=== PATIENT | male | born 1995 | race Caucasian/White ===

== ENCOUNTER 2017-04-28 23:31 | Emergency (ER) | payer MEDICARE, OTHER, MEDICAID ==
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
[2017-04-29 00:16] LABS: ABSOLUTE EOSINOPHILS # (AUTO) 0.1 10^3/uL (0.0-0.6); ABSOLUTE LYMPHOCYTES (AUTO) 2.9 10^3/uL (0.5-4.7); ABSOLUTE MONOCYTES (AUTO) 0.4 10^3/uL (0.1-1.4); BASOPHILS % (AUTO) 0.3 % (0-2); EOSINOPHILS % (AUTO) 1.7 % (0-6); HEMATOCRIT 45.9 % (37.9-51.0); HEMOGLOBIN 15.8 g/dL (13.5-17.0); HGB HCT DIFFERENCE 1.5; LYMPHOCYTES % (AUTO) 34.4 % (13-45); MEAN CORPUSCULAR HEMOGLOBIN 29.7 pg (27.0-33.4); MEAN CORPUSCULAR HGB CONC 34.5 g/dL (32.0-36.0); MEAN CORPUSCULAR VOLUME 86 fl (80-97); MONOCYTES % (AUTO) 4.4 % (3-13); RED BLOOD COUNT 5.32 10^6/uL (4.35-5.55); RED CELL DISTRIBUTION WIDTH 12.9 % (11.5-14.0); SEGMENTED NEUTROPHILS % (AUTO) 59.2 % (42-78); WHITE BLOOD COUNT 8.4 10^3/uL (4.0-10.5)
[2017-04-29 00:48] LABS: ALANINE AMINOTRANSFERASE 61 U/L (21-72); ALBUMIN 4.8 g/dL (3.5-5.0); ALKALINE PHOSPHATASE 60 U/L (38-126); ANION GAP 13 (5-19); ASPARTATE AMINO TRANSFERASE 34 U/L (17-59); BILIRUBIN,DIRECT 0.2 mg/dL (0.0-0.4); BLOOD UREA NITROGEN 9 mg/dL (7-20); CALCIUM 9.7 mg/dL (8.4-10.2); CARBON DIOXIDE 26 mmol/L (22-30); CHLORIDE 105 mmol/L (98-107); CREATININE RESULT 0.78 mg/dL (0.52-1.25); GLUCOSE 86 mg/dL (75-110); POTASSIUM 4.1 mmol/L (3.6-5.0); SODIUM 143.5 mmol/L (137-145); TOTAL PROTEIN 8.2 g/dL (6.3-8.2)
[2017-04-29 00:52] LABS: APPEARANCE,URINE CLEAR; BILIRUBIN,URINE NEGATIVE (NEGATIVE); GLUCOSE, URINE NEGATIVE (NEGATIVE); KETONES,URINE NEGATIVE (NEGATIVE); LEUKOCYTE ESTERASE,URINE NEGATIVE (NEGATIVE); NITRITE,URINE NEGATIVE (NEGATIVE); PROTEIN,URINE NEGATIVE (NEGATIVE); UROBILINOGEN,URINE NEGATIVE mg/dL (<2.0)
[2017-04-29 00:54] LABS: ALCOHOL < 10 mg/dL (NONE DETECTED)
[2017-04-29 01:03] LABS: URINE BARBITURATES SCREEN NEGATIVE; URINE METHADONE SCREEN NEGATIVE; URINE OPIATES LOW NEGATIVE; URINE PHENCYCLIDINE SCREEN NEGATIVE
[2017-04-29] MEDS ORDERED: ACETAMINOPHEN 325 MG TABLET PO PRN (01:07)
[2017-04-29] MEDS ORDERED: DESMOPRESSIN ACETATE 0.1 MG TABLET PO SCH ×2 (01:15→22:00)
[2017-04-29] MEDS ORDERED: DESMOPRESSIN ACETATE 0.1 MG TABLET PO ONE (01:30)
[2017-04-29] MEDS ORDERED: METFORMIN HCL 500 MG TABLET PO SCH (08:00)
--- NOTE | 2017-04-29 08:19 | EKG REPORT ---
SEVERITY:- NORMAL ECG - SINUS RHYTHM : Confirmed by: Rafael Owens MD 29-Apr-2017 08:18:25
--- NOTE | 2017-04-29 08:53 | ER Document Report ---
Doctor's Note Notes: 04/29/17 08:52 Patient seen and evaluated by me. Vital signs are stable. Patient denies any acute complaints. Awaiting mental health evaluation.
[2017-04-29] MEDS ORDERED: CLONIDINE HCL 0.1 MG TABLET PO SCH (10:00)
[2017-04-29 15:56] VITALS: BP 138/90
--- NOTE | 2017-04-29 15:56 | ER Document Report ---
Doctor's Note Notes: 04/29/17 15:55 Per mental health request, patient will be discharged. They have arranged for appropriate follow-up. Discharge - Discharge Clinical Impression: Suicidal thoughts Condition: Fair Disposition: HOME, SELF-CARE Additional Instructions: DEPRESSION: Your evaluation reveals that you have mental depression. While symptoms may be vague, they often include disturbance of sleep, fatigue, loss of appetite , and general loss of interest in life. While depression may be a side effect of drugs, or a reaction to a major change in your life, many cases have no known cause. If depression is acute, and related to a major loss in your life, you can expect it to clear completely with time. If you have been depressed a long time , are prone to repeated bouts of depression or low mood, or have been thinking of suicide, get help. Depression can be treated with anti-depressant medication and counselling. Long-term depression will often take a few weeks to clear, even with appropriate medication. Follow-up care is important. SUICIDAL IDEATION: Suicidal ideation is a common medical term for thoughts about suicide, which may be as detailed as a formulated plan, without the suicidal act itself. Although most people who undergo suicidal ideation do not commit suicide, some go on to make suicide attempts. The range of suicidal ideation varies greatly from fleeting to detailed planning, role playing, and unsuccessful attempts. While thoughts about suicide are common, most people do not carry out serious actions to commit suicide. Based upon your evaluation and discussion with you, we do not believe you are currently at risk to act upon your thoughts of suicide. You have agreed to return to the Emergency Department, at any time, if you feel inclined to act upon your suicidal thoughts. FOLLOW-UP CARE: You should follow up with your current outpatient mental health providers at [facility] [place] ([facility]) for medication and therapy while you remain in [place]. You will go to the [address] [place] [address] location while your girlfriend and son go to the new location with girlfriend's father. In order to go to the new location you should be accompanied by law enforcement. Brother is arranging for a bus ticket to go to [place] with your family. Girlfriend's father will provide transportation to the bus station. Brother, girlfriend and girlfriend's father will coordinate this transition. Once in [place] it is recommended you obtain mental health services there. Referrals: [facility] [Outside] - Follow up as needed ()
== END 2017-04-29 15:55 | disposition home or self-care (01) ==
LOC: ER 23:31
DX: F31.9 Bipolar disorder, unspecified (principal); F89 Unspecified disorder of psychological development; R45.851 Suicidal ideations; F17.200 Nicotine dependence, unspecified, uncomplicated; I10 Essential (primary) hypertension
CPT/HCPCS: 93005; 99285; 36415; 80307 ×4; 85025; 80053; 81001; 93010; A9270 ×3; J3490

== ENCOUNTER 2017-10-29 17:24 | Emergency (ER) | payer MEDICARE, OTHER ==
--- NOTE | 2017-10-29 17:59 | ER Document Report ---
ED Psych Disorder / Suicide - General Chief Complaint: Suicidal Ideation Stated Complaint: SUICIDAL Time Seen by Provider: 10/29/17 17:49 Mode of Arrival: Medic Information source: Patient, Emergency Med Personnel, [facility] Records Notes: This 22-year-old male patient comes emergency room by EMS for suicidal ideation for the past few hours. Last time he had problems like this was in April of this past year. He recalls that it was in fact April and I confirm this looking in medical record. He has a girlfriend home and a 9-month-old child. He states that the holidays have just past and it makes him is his stepmother who in May 2 years ago. He thinks this may be the trigger. He has thought of cutting himself. He has not cut in several years he does recall how it helped him feel better. He did come here voluntarily to get help to avoid doing anything to harm himself. TRAVEL OUTSIDE OF THE U.S. IN LAST 30 DAYS: No - Related Data Allergies/Adverse Reactions: divalproex sodium [From Depakote] Allergy (Verified 10/29/17 17:27) methylphenidate HCl [From Ritalin] Allergy (Verified 10/29/17 17:27) quetiapine fumarate [From Seroquel] Allergy (Verified 10/29/17 17:27) risperidone [From Risperdal] Allergy (Verified 10/29/17 17:27) Past Medical History - General Information source: Patient, [facility] Records - Social History Smoking Status: Never Smoker Cigarette use (# per day): No Chew tobacco use (# tins/day): No Smoking Education Provided: No Frequency of alcohol use: None Drug Abuse: None Occupation: Unemployed Lives with: Family, Spouse/Significant other Family History: Reviewed & Not Pertinent Patient has suicidal ideation: Yes Patient has homicidal ideation: No - Past Medical History Cardiac Medical History: Reports: Hx Hypertension Pulmonary Medical History: Reports: None EENT Medical History: Reports: None Neurological Medical History: Reports: None Endocrine Medical History: Reports: None Renal/ Medical History: Reports: None GI Medical History: Reports: None Musculoskeltal Medical History: Reports None Skin Medical History: Reports None Psychiatric Medical History: Reports: Hx Attention Deficit Hyperactivity Disorder, Hx Bipolar Disorder, Hx Depression, Hx Schizophrenia Surgical Hx: Negative Review of Systems - Review of Systems Constitutional: No symptoms reported EENT: No symptoms reported Cardiovascular: No symptoms reported Respiratory: No symptoms reported Gastrointestinal: No symptoms reported Genitourinary: No symptoms reported Musculoskeletal: No symptoms reported Skin: No symptoms reported Hematologic/Lymphatic: No symptoms reported Neurological/Psychological: Depression Physical Exam - Vital signs Vitals: Temp Pulse Resp BP Pulse Ox 99.2 F 88 14 136/88 H 97 10/29/17 17:28 10/29/17 17:28 10/29/17 17:28 10/29/17 17:28 10/29/17 17:28 Interpretation: Normal - General General appearance: Appears well, Alert In distress: None - HEENT Head: Normocephalic, Atraumatic Eyes: Normal Pupils: PERRL Neck: Normal, Supple - Respiratory Respiratory status: No respiratory distress Breath sounds: Normal - Cardiovascular Rhythm: Regular Heart sounds: Normal auscultation Murmur: No - Abdominal Inspection: Obese Bowel sounds: Normal Tenderness: Nontender - Back Back: Normal - Extremities General upper extremity: Normal inspection General lower extremity: Normal inspection - Neurological Neuro grossly intact: Yes - Psychological Associated symptoms: Depressed - Patient is only mildly depressed - Skin Skin Temperature: Warm Skin Moisture: Dry Skin Color: Normal Course - Vital Signs Vital signs: Temp Pulse Resp BP Pulse Ox 99.2 F 88 14 136/88 H 97 10/29/17 17:28 10/29/17 17:28 10/29/17 17:28 10/29/17 17:28 10/29/17 17:28 - EKG Interpretation by Tn EKG shows normal: Sinus rhythm, [place], Intervals, QRS Complexes, ST-T Waves Rate: Normal - 76 Rhythm: NSR Discharge - Discharge Clinical Impression: Suicidal ideation Depression Qualifiers: Depression Type: unspecified Qualified Code(s): F32.9 - Major depressive disorder, single episode, unspecified Condition: Stable Disposition: PSYCH HOSP/UNIT
[2017-10-29 18:45] LABS: APPEARANCE,URINE CLEAR; BILIRUBIN,URINE NEGATIVE (NEGATIVE); COLOR,URINE YELLOW; GLUCOSE, URINE NEGATIVE (NEGATIVE); KETONES,URINE NEGATIVE (NEGATIVE); LEUKOCYTE ESTERASE,URINE TRACE (NEGATIVE); NITRITE,URINE NEGATIVE (NEGATIVE); PROTEIN,URINE NEGATIVE (NEGATIVE); URINE SPECIFIC GRAVITY 1.024; UROBILINOGEN,URINE NEGATIVE mg/dL (<2.0)
[2017-10-29 18:57] LABS: ABSOLUTE EOSINOPHILS # (AUTO) 0.3 10^3/uL (0.0-0.6); ABSOLUTE LYMPHOCYTES (AUTO) 2.7 10^3/uL (0.5-4.7); ABSOLUTE MONOCYTES (AUTO) 0.5 10^3/uL (0.1-1.4); ABSOLUTE NEUT (AUTO) 4.1 10^3/uL (1.7-8.2); BASOPHILS % (AUTO) 0.2 % (0-2); EOSINOPHILS % (AUTO) 4.3 % (0-6); HEMATOCRIT 45.4 % (37.9-51.0); HEMOGLOBIN 15.8 g/dL (13.5-17.0); LYMPHOCYTES % (AUTO) 34.9 % (13-45); MEAN CORPUSCULAR HEMOGLOBIN 29.8 pg (27.0-33.4); MEAN CORPUSCULAR HGB CONC 34.9 g/dL (32.0-36.0); MEAN CORPUSCULAR VOLUME 86 fl (80-97); MONOCYTES % (AUTO) 6.5 % (3-13); PLATELET COUNT 250 10^3/uL (150-450); RED BLOOD COUNT 5.31 10^6/uL (4.35-5.55); RED CELL DISTRIBUTION WIDTH 12.9 % (11.5-14.0); SEGMENTED NEUTROPHILS % (AUTO) 54.1 % (42-78); TOTAL CELLS COUNTED % (AUTO) 100 %; WHITE BLOOD COUNT 7.7 10^3/uL (4.0-10.5)
[2017-10-29 19:08] LABS: URINE AMPHETAMINES SCREEN NEGATIVE; URINE BARBITURATES SCREEN NEGATIVE; URINE BENZODIAZEPINES SCREEN NEGATIVE; URINE COCAINE SCREEN NEGATIVE; URINE MARIJUANA (THC) SCREEN NEGATIVE; URINE METHADONE SCREEN NEGATIVE; URINE PHENCYCLIDINE SCREEN NEGATIVE
--- NOTE | 2017-10-29 19:09 | EKG REPORT ---
SEVERITY:- BORDERLINE ECG - SINUS RHYTHM NONSPECIFIC ST-T CHANGES- INFERIOR LEADS : Confirmed by: Rafael Owens MD 29-Oct-2017 19:07:07
[2017-10-29 19:16] LABS: ALANINE AMINOTRANSFERASE 39 U/L (21-72); ALKALINE PHOSPHATASE 61 U/L (38-126); ANION GAP 14 (5-19); ASPARTATE AMINO TRANSFERASE 28 U/L (17-59); BILIRUBIN,DIRECT 0.3 mg/dL (0.0-0.4); BLOOD UREA NITROGEN 13 mg/dL (7-20); CARBON DIOXIDE 26 mmol/L (22-30); CHLORIDE 107 mmol/L (98-107); GLUCOSE 70 mg/dL (75-110); SODIUM 147.4 mmol/L (137-145); TOTAL PROTEIN 8.1 g/dL (6.3-8.2)
[2017-10-29 19:17] LABS: ACETAMINOPHEN < 10 ug/mL (10-30); ALCOHOL < 10 mg/dL (NONE DETECTED); SALICYLATE < 1.0 mg/dL (2.0-20.0)
--- NOTE | 2017-10-30 10:08 | ER Document Report ---
Doctor's Note Notes: 10/30/17 10:06 Well-appearing. No acute distress. History of mental disorder since he was 11. On on and off multiple medications. States that he has had self-harm thoughts his whole life. Seems to be getting worse. Has a 9-month-old child and a girlfriend. Recently moved here from [place]. Denies any plan to hurt himself. Requesting medication adjustment. Will have mental health team see and make recommendations and then follow-up on that. Likely discharge today. 10/30/17 15:25 Gate level is low. Will give 600 mg dose at this time. Recommend he continue with his regular dose after that. Nothing further. Will DC.
--- NOTE | 2017-10-30 15:43 | PSYCHOLOGICAL NOTE ---
Psych Note - Psych Note Psych Note: Reason For Consult: Suicidal ideation Consent Permissions: Delia cho [phone] patient arrived c/o SI that started around 1400 this afternoon. Denies anything that brought it on. Pt reports it has happened before last April. Patient states the 'holidays just past and I'm a long way from home.' Also states his step mom a couple years ago and he still misses her. Patient states he is thinking of cutting 'because it makes me feel better.' Patient discloses that he arrived to [facility] via EMS because of suicidal ideation. Patient states "I just wanted to ... I felt distant from everyone. " Patient denies plan means or intent. Patient continued to report a history of cutting however states he has not cut in years. Patient does have outpatient mental health provider through [facility] his next appointment is 2017. Patient states he feels that his medication "sort of kind of works." Patient states that he has a diagnosis of PTSD and schizoaffective bipolar type. He states that he is been taking his medications as prescribed however with the holidays and remembering in missing his stepmother who 2 1/ 2 years ago he started having suicidal ideation last night. Patient continues state that it is constant when he is awake. Clinician spoke with patient's girlfriend, Delia, she states that yesterday morning he was doing really well. She continues state that he was starting to fall asleep so she told him to go lay down; however, when he woke up he was quiet and distant. She continued to state that when she talk to him about what was wrong the patient stated that his "moods were fluctuating and was not feeling good." She continued to disclose that he forgets to take his medicine sometimes and she is worried that might be why he is not feeling right. She reports she asked the patient if he was having suicidal ideation and he confirms he was. Patient has family in [place] however is currently estranged from them. Patient was inpatient psychiatric treatment approximately 2 months ago in [place] with similar etiology. She denies patient is ever attempted suicide to her knowledge. Patient is alert and orientated to person, place, time and circumstance. Mood is euthymic with restricted affect. Patient endorses passive suicidal ideation denies homicidal ideation. Delusions are absent and behaviors congruent with intact reality based presentation i.e. organized and linear thought process. Eye contact was well-maintained. Conversational speech was within normal rate, tone and prosody. Intellectual abilities appear to be the low average range. Attention and concentration were good. Insight, judgment, impulse control are good as evidenced by coming into seek assistance when having suicidal ideation. Diagnosis: 295.70 (F25.0) schizoaffective disorder; bipolar type per history provided by patient 309.81 (F43.10) post traumatic stress disorder per history provided by patient Impression/Plan: Patient is considered psychologically clear. He does not meet IVC criteria per [place] [address]. Patient endorses passive suicidal ideation i.e. no plans means or intent. Patient denies homicidal ideation. There is no observed psychosis (Delusions are absent and behaviors congruent with intact reality based presentation i.e. organized and linear thought process. Eye contact was well-maintained. Conversational speech was within normal rate, tone and prosody). Patient's Chemult level was low. Patient received a dose of Chemult. Patient and girl friend discussed ways to remember taking medications , to include a pill container and/or setting an alarm. Patient is recommended to continue outpatient mental health services through their provider, [facility]. Dr. Matta was consulted on the care and management of this patient. ED Physician in agreement with recommendations.
[2017-10-30] MEDS ORDERED: LITHIUM CARBONATE 300 MG CAPSULE PO ONE (16:03)
[2017-10-30 16:27] VITALS: BP 126/80
== END 2017-10-30 16:15 | disposition home or self-care (01) ==
LOC: ER 17:24
DX: R45.851 Suicidal ideations (principal); F43.10 Post-traumatic stress disorder, unspecified; F25.0 Schizoaffective disorder, bipolar type; I10 Essential (primary) hypertension
CPT/HCPCS: 93005; 99285; 36415; 80307 ×4; 80178; 85025; 80053; 81001; 93010; J3490

== ENCOUNTER 2018-01-01 20:31 | Emergency (ER) | payer MEDICARE, OTHER ==
--- NOTE | 2018-01-01 22:39 | ER Document Report ---
ED Skin Rash/Insect Bite/Abscs - General Chief Complaint: Rash Stated Complaint: POSSIBLE RASH Time Seen by Provider: 01/01/18 22:04 Mode of Arrival: Ambulatory Information source: Patient Notes: 22-year-old male presents to ED for rash from his head to his feet including both feet between the toes between the fingers at waistline and in the skin folds. Rash is in a linear aspect on multiple areas. The rash does look like scabies. TRAVEL OUTSIDE OF THE [place] IN LAST 30 DAYS: No - HPI Patient complains to provider of: Other - Possible scabies Onset: Other - multiple weeks unsure how long Onset/Duration: Gradual Quality of pain: No pain Severity: None Pain Level: Denies Skin Character: Rash Quality of rash: Itchy Identify cause: Yes - Probable scabies Exacerbated by: Denies Relieved by: Denies Similar symptoms previously: No Recently seen / treated by doctor: No - Related Data Allergies/Adverse Reactions: divalproex sodium [From Depakote] Allergy (Verified 10/29/17 17:27) methylphenidate HCl [From Ritalin] Allergy (Verified 10/29/17 17:27) quetiapine fumarate [From Seroquel] Allergy (Verified 10/29/17 17:27) risperidone [From Risperdal] Allergy (Verified 10/29/17 17:27) Past Medical History - General Information source: Parent - Social History Smoking Status: Never Smoker Cigarette use (# per day): No Chew tobacco use (# tins/day): No Smoking Education Provided: No Frequency of alcohol use: None Drug Abuse: None Occupation: [employer] Family History: Arthritis, CAD, Hyperlipidemia, Hypertension, Malignancy, Thyroid Disfunction Patient has suicidal ideation: Yes Patient has homicidal ideation: No - Past Medical History Cardiac Medical History: Reports: None Pulmonary Medical History: Reports: None EENT Medical History: Reports: None Neurological Medical History: Reports: None Renal/ Medical History: Reports: None Malignancy Medical History: Reports None GI Medical History: Reports: Hx Irritable Bowel Musculoskeltal Medical History: Reports Hx Arthritis Psychiatric Medical History: Reports: Hx Attention Deficit Hyperactivity Disorder, Hx Bipolar Disorder, Hx Depression, Hx Post Traumatic Stress Disorder , Hx Schizoaffective Disorder Traumatic Medical History: Reports: None Infectious Medical History: Reports: None Surgical Hx: Negative Review of Systems - Review of Systems Constitutional: No symptoms reported EENT: No symptoms reported Cardiovascular: No symptoms reported Respiratory: No symptoms reported Gastrointestinal: No symptoms reported Genitourinary: No symptoms reported Male Genitourinary: No symptoms reported Musculoskeletal: No symptoms reported Skin: Rash - Generalized Hematologic/Lymphatic: No symptoms reported Neurological/Psychological: No symptoms reported -: Yes All other systems reviewed and negative Physical Exam - Vital signs Vitals: Temp Pulse Resp BP Pulse Ox 98.6 F 95 16 130/85 H 95 01/01/18 20:37 01/01/18 20:37 01/01/18 20:37 01/01/18 20:37 01/01/18 20:37 Interpretation: Normal - General General appearance: Appears well, Alert - HEENT Head: Normocephalic, Atraumatic Eyes: Normal Pupils: PERRL - Respiratory Respiratory status: No respiratory distress Chest status: Nontender Breath sounds: Normal Chest palpation: Normal - Cardiovascular Rhythm: Regular Heart sounds: Normal auscultation Murmur: No - Abdominal Inspection: Normal Distension: No distension Bowel sounds: Normal Tenderness: Nontender Organomegaly: No organomegaly - Back Back: Normal, Nontender - Extremities General upper extremity: Normal inspection, Nontender, Normal color, Normal ROM , Normal temperature General lower extremity: Normal inspection, Nontender, Normal color, Normal ROM , Normal temperature, Normal weight bearing. No: Shelly's sign - Neurological Neuro grossly intact: Yes Cognition: Normal Orientation: AAOx4 Asif Coma Scale Eye Opening: Spontaneous Asif Coma Scale Verbal: Oriented [place] Coma Scale Motor: Obeys Commands [place] Coma Scale Total: 15 Speech: Normal Motor strength normal: LUE, RUE, LLE, RLE Sensory: Normal - Psychological Associated symptoms: Normal affect, Normal mood - Skin Skin Temperature: Warm Skin Moisture: Dry Skin Color: Normal Location of irregularity: Generalized Character of irregularity: Linear - Appears to be scabies tunneling lines, Erythematous Course - Vital Signs Vital signs: Temp Pulse Resp BP Pulse Ox 98.3 F 86 18 128/82 H 99 01/01/18 22:47 01/01/18 22:47 01/01/18 22:47 01/01/18 22:47 01/01/18 22:47 Discharge - Discharge Clinical Impression: Scabies Condition: Stable Disposition: HOME, SELF-CARE Instructions: Family Physicians / Practices Additional Instructions: Scabies Your exam suggests the presence of scabies, which are microscopic parasites of the skin. These mites miya through the skin, causing severe itching. The mite can be spread to other persons by skin contact. All clothing, towels, and bedding should be washed in very hot water, set aside for a week, then washed again. You should apply scabies-killing lotion from the neck down, then wash it off after 12 hours. You may need medication for itching, as the itch persists for many days after the mites have been killed. All family members and close personal contacts should be examined. Repeat treatment may be necessary if the infestation is not eliminated with a single treatment. Call the doctor if you develop increasing swelling and redness, red streaks , tender lumps, fever, or drainage from a skin sore. Diphenhydramine The use of diphenhydramine (Benadryl) has been recommended to control allergic symptoms. The 25 mg strength is available over- the-counter, as well as the elixir. This antihistamine is used for many symptoms. It's useful for itching, watering eyes and nose, allergic swelling, hives, and insect stings. The medication can be repeated four times daily. Age Elixir (12.5 mg/tsp) 25 mg pill 1 yr 1/4 tsp 2-3 yr 1/2 tsp 4-8 yr 1 tsp 9-14 yr 2 tsp one tab adult 1-2 tabs Antihistamines may cause drowsiness, especially with the first dose. Do not operate machinery or drive while under the effects of the medication. Do not combine the medication with alcohol, or with any other medication without talking to your doctor. FOLLOW-UP CARE: If you have been referred to a physician for follow-up care, call the physician s office for an appointment as you were instructed or within the next two days. If you experience worsening or a significant change in your symptoms, notify the physician immediately or return to the Emergency Department at any time for re-evaluation. Prescriptions: Permethrin [Elimite] 60 gm TP ONCE PRN #60 cream..g. PRN Reason: Forms: Elevated Blood Pressure
[2018-01-01 22:52] VITALS: BP 128/82
== END 2018-01-01 22:52 | disposition home or self-care (01) ==
LOC: ER 20:31
DX: B86 Scabies (principal); R21 Rash and other nonspecific skin eruption
CPT/HCPCS: 99282